=== PATIENT | female | born 1995 | race Caucasian/White ===

== ENCOUNTER 2019-10-11 10:56 | Emergency (ER) | payer BC ==
[~2019-10-11] VITALS: Ht 177.8 cm; Wt 66.4 kg
--- NOTE | 2019-10-11 11:25 | PHYS DOC ---
Past History Past Medical History: Depression Additional Smoking Information: Vape Alcohol Use: Occasionally Adult General Chief Complaint Chief Complaint: NAUSEA/VOMITING/DIARRHEA HPI HPI 24-year-old female presents with nausea and vomiting. Patient started to have vomiting and diarrhea around 3:00 this morning. It came on suddenly. She was feeling okay yesterday except for some depression. She has felt a little more depressed the last few days. Otherwise she has felt okay medically. She denies fever chills. She has no other complaints at this time. Review of Systems Review of Systems Constitutional: Denies fever or chills [] Eyes: Denies change in visual acuity, redness, or eye pain [] HENT: Denies nasal congestion or sore throat [] Respiratory: Denies cough or shortness of breath [] Cardiovascular: No additional information not addressed in HPI [] GI: Denies abdominal pain, nausea, vomiting, bloody stools or diarrhea [] : Denies dysuria or hematuria [] Musculoskeletal: Denies back pain or joint pain [] Integument: Denies rash or skin lesions [] Neurologic: Denies headache, focal weakness or sensory changes [] Endocrine: Denies polyuria or polydipsia [] All other systems were reviewed and found to be within normal limits, except as documented in this note. Current Medications Current Medications Current Medications Medications (Trade) Dose Ordered Sig/Adi Start Time Stop Time Status Last Admin Dose Admin Ondansetron HCl (Zofran) 4 mg 1X ONCE 10/11/19 11:30 10/11/19 11:31 Sodium Chloride 1,000 ml @ 1,000 mls/hr 1X ONCE 10/11/19 11:30 10/11/19 12:29 Allergies Allergies Allergies Coded Allergies Type Severity Reaction Last Updated Verified amoxicillin Allergy Unknown 10/11/19 Yes Uncoded Allergies Type Severity Reaction Last Updated Verified ERYTHROMYCIN Allergy Unknown 10/11/19 Physical Exam Physical Exam Constitutional: Well developed, well nourished, no acute distress, non-toxic appearance. [] HENT: Normocephalic, atraumatic, bilateral external ears normal, oropharynx moist, no oral exudates, nose normal. [] Eyes: PERRLA, EOMI, conjunctiva normal, no discharge. [] Neck: Normal range of motion, no tenderness, supple, no stridor. [] Cardiovascular:Heart rate regular rhythm, no murmur [] Lungs & Thorax: Bilateral breath sounds clear to auscultation [] Abdomen: Bowel sounds normal, soft, no tenderness, no masses, no pulsatile masses. [] Skin: Warm, dry, no erythema, no rash. [] Back: No tenderness, no CVA tenderness. [] Extremities: No tenderness, no cyanosis, no clubbing, ROM intact, no edema. [] Neurologic: Alert and oriented X 3, normal motor function, normal sensory function, no focal deficits noted. [] Psychologic: Affect normal, judgement normal, mood normal. [] Current Patient Data Vital Signs Vital Signs Date Time Temp Pulse Resp B/P (MAP) Pulse Ox O2 Delivery O2 Flow Rate FiO2 10/11/19 11:15 97.4 82 24 114/71 (85) 98 Room Air EKG EKG [] Radiology/Procedures Radiology/Procedures [] Course & Med Decision Making Course & Med Decision Making Pertinent Labs and Imaging studies reviewed. (See chart for details) The patient's labs are unremarkable. She was given 4 mg of Zofran IV and a liter of normal saline. She has had no further vomiting. I will discharge her with a prescription for Zofran. She is stable for discharge at this time. [] Dragon Disclaimer Dragon Disclaimer This electronic medical record was generated, in whole or in part, using a voice recognition dictation system. Departure Departure: Impression: Primary Impression: Nausea & vomiting Additional Impression: Diarrhea Disposition: HOME, SELF-CARE Condition: IMPROVED Referrals: PCP,NO (PCP) Patient Instructions: Viral Gastroenteritis, Tyqd-[id number] Scripts Ondansetron (ONDANSETRON ODT) 4 Mg Tab.rapdis 1 TAB PO PRN Q6-8HRS PRN for VOMITING, #16 TAB Prov: TAWANDA LOWE DO 10/11/19 Problem Qualifiers Primary Impression: Nausea & vomiting Vomiting type: unspecified Vomiting Intractability: non-intractable Qualified Codes: R11.2 - Nausea with vomiting, unspecified Additional Impression: Diarrhea Diarrhea type: unspecified type Qualified Codes: R19.7 - Diarrhea, unspecified TAWANDA LOWE DO Oct 11, 2019 11:25
[2019-10-11] MEDS ORDERED: IV NORMAL SALINE 1,000ML 1,000 ML IV ONE (11:30)
[2019-10-11] MEDS ORDERED: ONDANSETRON PF 4 MG/2 ML VIAL. IVP ONE (11:30)
[2019-10-11 11:55] LABS: BASO % 0 % (0-3); EOS % 0 % (0-3); HEMATOCRIT 44.7 % (36.0-47.0); HEMOGLOBIN 15.7 g/dL (12.0-15.5); LYMPH # 0.7 x10^3/uL (1.0-4.8); LYMPH % 6 % (24-48); MEAN CORPUSCULAR HEMOGLOBIN 30 pg (25-35); MEAN CORPUSCULAR HGB CONC 35 g/dL (31-37); MEAN CORPUSCULAR VOLUME 86 fL (79-100); MONO # 0.2 x10^3/uL (0.0-1.1); MONO % 2 % (0-9); NEUT # 9.9 x10^3uL (1.8-7.7); NEUT % 92 % (31-73); PLATELET COUNT 226 x10^3/uL (140-400); RED BLOOD COUNT 5.19 x10^6/uL (3.50-5.40); RED CELL DISTRIBUTION WIDTH 11.9 % (11.5-14.5); WHITE BLOOD COUNT 10.8 x10^3/uL (4.0-11.0)
[2019-10-11 11:59] LABS: CALCIUM 9.1 mg/dL (8.5-10.1); POTASSIUM 3.7 mmol/L (3.5-5.1)
[2019-10-11 12:06] LABS: ALBUMIN 4.1 g/dL (3.4-5.0); ALBUMIN/GLOBULIN RATIO 1.2 (1.0-1.7); TOTAL BILIRUBIN 1.1 mg/dL (0.2-1.0); TOTAL PROTEIN 7.4 g/dL (6.4-8.2)
[2019-10-11] MEDS ORDERED: ONDA4TAB12 PO (13:01)
[2019-10-11 13:02] VITALS: BP 129/71
== END 2019-10-11 13:10 | disposition home or self-care (01) ==
LOC: ER 10:56
DX: R11.2 Nausea with vomiting, unspecified (principal); R19.7 Diarrhea, unspecified; Z88.1 Allergy status to other antibiotic agents
CPT/HCPCS: 36415; 80053; 85025; 96361; 96374; 99285; J2405; J7030

== ENCOUNTER 2019-10-12 18:22 | Emergency (ER) | payer BC ==
[~2019-10-12] VITALS: Ht 177.8 cm; Wt 68.0 kg
[2019-10-12 18:22] VITALS: BP 140/114
[~2019-10-12 18:22] MED LIST: ONDA4TAB12 PO
[2019-10-12] MEDS ORDERED: ONDANSETRON ODT 4 MG TAB.RAPDIS ONE (18:32)
[2019-10-12] MEDS: ONDANSETRON ODT 4 MG TAB.RAPDIS PO ONE (18:35)
[2019-10-12] MEDS: FAMOTIDINE 20 MG/2 ML VIAL IVP ONE (18:45)
[2019-10-12] MEDS: IV NORMAL SALINE 1,000ML 1,000 ML IV ONE ×2 (18:50→20:30)
[2019-10-12 19:01] LABS: BASO % 0 % (0-3); EOS % 0 % (0-3); HEMATOCRIT 43.9 % (36.0-47.0); HEMOGLOBIN 15.4 g/dL (12.0-15.5); LYMPH # 1.1 x10^3/uL (1.0-4.8); LYMPH % 9 % (24-48); MEAN CORPUSCULAR HEMOGLOBIN 30 pg (25-35); MEAN CORPUSCULAR HGB CONC 35 g/dL (31-37); MEAN CORPUSCULAR VOLUME 86 fL (79-100); MONO # 0.6 x10^3/uL (0.0-1.1); MONO % 5 % (0-9); NEUT # 10.4 x10^3uL (1.8-7.7); NEUT % 86 % (31-73); PLATELET COUNT 251 x10^3/uL (140-400); RED BLOOD COUNT 5.09 x10^6/uL (3.50-5.40); RED CELL DISTRIBUTION WIDTH 12.3 % (11.5-14.5); WHITE BLOOD COUNT 12.2 x10^3/uL (4.0-11.0)
[2019-10-12 19:13] LABS: CALCIUM 9.2 mg/dL (8.5-10.1); CREATININE 1.1 mg/dL (0.6-1.0); POTASSIUM 3.2 mmol/L (3.5-5.1)
[2019-10-12 19:19] LABS: ALBUMIN 4.2 g/dL (3.4-5.0); ALBUMIN/GLOBULIN RATIO 1.2 (1.0-1.7); TOTAL BILIRUBIN 1.3 mg/dL (0.2-1.0); TOTAL PROTEIN 7.7 g/dL (6.4-8.2)
[2019-10-12] MEDS: IOHEXOL 300 MG/ML 75 ML VIAL. IV ONE ×2 (19:35→20:42)
[2019-10-12 19:50] LABS: PREG TEST PT QUAL NEGATIVE (NEG)
[2019-10-12 19:56] LABS: CLARITY,URINE CLOUDY; COLOR,URINE AMBER
--- NOTE | 2019-10-12 19:56 | RAD ---
CT abdomen pelvis with contrast dated 10/12/2019. No comparison available. Clinical data indication: Abdominal pain and intractable nausea and vomiting. TECHNIQUE: Contiguous axial imaging the abdomen and pelvis performed after the administration of 75 cc Omnipaque 300. One or more of the following individualized dose reduction techniques were utilized for this examination: 1. Automated exposure control 2. Adjustment of the mA and/or kV according to patient size 3. Use of iterative reconstruction technique. FINDINGS: Limited images of lung bases are clear. There is a small amount of pneumomediastinum anterior to the heart and around the distal thoracic esophagus. No pleural or pericardial effusion. Liver is homogeneous in attenuation. There is mild periportal edema. There is some low density near the falciform ligament likely represents focal fat. The gallbladder is surgically absent. Spleen is mildly enlarged. Pancreas, adrenal glands and kidneys are unremarkable. No hydronephrosis. Unopacified GI tract normal in caliber and contour. No focal bowel wall thickening. No inflammatory stranding in the mesentery. Appendix normal in caliber. No ascites or lymphadenopathy. Abdominal aorta normal in caliber. Images of pelvis show nondistended urinary bladder. Uterus unremarkable. There is a 2.4 cm left ovarian cyst. No free fluid or pelvic lymphadenopathy. Bone windows show no acute findings. IMPRESSION: 1. There is a small amount of pneumomediastinum anterior to the heart and around the distal thoracic esophagus which is of uncertain etiology. Correlation with clinical history and imaging of the chest to better evaluate. 2. Mild periportal edema, nonspecific. 3. Otherwise no acute abnormality. Normal appendix. 4. Status post cholecystectomy. Electronically signed by: Deniz Torres MD (10/12/2019 7:53 PM) [id number]
[2019-10-12 19:57] LABS: BACTERIA,URINE MOD /HPF (0-FEW); BILIRUBIN,URINE NEG (NEG); GLUCOSE,URINE NEG (NEG); NITRITE,URINE NEG (NEG); SQUAMOUS EPITHELIAL CELL,UR FEW /LPF
[2019-10-12] MEDS: METOCLOPRAMIDE HCL 10 MG/2 ML VIAL. IVP ONE (19:58)
[2019-10-12] MEDS: diphenhydrAMINE 50 MG/ML VIAL IVP ONE (19:58)
[2019-10-12] MEDS: KETOROLAC 15 MG/ML VIAL. IVP ONE (19:59)
[2019-10-12 20:13] LABS: BARBITURATES NEG (NEG); BENZODIAZEPINES NEG (NEG); CANNABINOIDS NEG (NEG); COCAINE NEG (NEG); METHADONE NEG (NEG); OPIATES NEG (NEG); PHENCYCLIDINE NEG (NEG)
[2019-10-12 20:16] LABS: AMPHETAMINE/METHAMPHETAMINE NEG (NEG)
[2019-10-12] MEDS ORDERED: CONTRAST GIVEN MC PRN (20:30)
--- NOTE | 2019-10-12 20:56 | PHYS DOC ---
Past History Past Medical History: Asthma, Depression Past Surgical History: Cholecystectomy Smoking: Cigarettes Alcohol Use: Occasionally Drug Use: None Adult General Chief Complaint Chief Complaint: NAUSEA/VOMITING/DIARRHEA HPI HPI 24-year-old female presents with report of intractable nausea and vomiting that has been ongoing for the past 2 days. Patient does report some abdominal discomfort. Patient was seen yesterday for same with blood work done per [facility] review. Patient was discharged home with nausea medication. Patient denies known trauma. Denies . Denies known sick contacts. Denies travel. Review of Systems Review of Systems Constitutional: Denies fever or chills; reports generalized malaise Eyes: Denies redness or eye pain HENT: Denies nasal congestion or sore throat Respiratory: Denies cough or shortness of breath Cardiovascular: Denies chest pain or palpitations GI: Reports upper abdominal pain, nausea, and vomiting; denies diarrhea or constipation : Denies dysuria; reports decreased urinary frequency Musculoskeletal: Denies back pain or joint pain Integument: Denies rash or skin lesions Neurologic: Denies headache, focal weakness or sensory changes Complete systems were reviewed and found to be within normal limits, except as documented in this note. Current Medications Current Medications Current Medications Medications (Trade) Dose Ordered Sig/Adi Start Time Stop Time Status Last Admin Dose Admin Ceftriaxone Sodium 1 gm/ Sodium Chloride 50 ml @ 100 mls/hr 1X ONCE 10/12/19 20:45 10/12/19 21:14 Diphenhydramine HCl (Benadryl) 50 mg 1X ONCE 10/12/19 19:30 10/12/19 19:31 DC 10/12/19 19:58 50 MG Famotidine (Pepcid Vial) 20 mg 1X ONCE 10/12/19 18:45 10/12/19 18:58 DC 10/12/19 18:45 20 MG Info (Do NOT chart on this entry -- for MONITORING) 1 each PRN DAILY PRN 10/12/19 20:30 10/14/19 20:29 Iohexol (Omnipaque 300 Mg/ml) 60 ml 1X ONCE 10/12/19 20:15 10/12/19 20:20 DC Ketorolac Tromethamine (Toradol 15mg Vial) 15 mg 1X ONCE 10/12/19 18:45 10/12/19 19:01 DC 3/31/20 19:59 15 MG Metoclopramide HCl (Reglan Vial) 10 mg 1X ONCE 10/12/19 19:30 10/12/19 19:31 DC 10/12/19 19:58 10 MG Ondansetron HCl (Zofran Odt) 4 mg 1X ONCE 10/12/19 19:00 10/12/19 19:01 DC 10/12/19 18:35 4 MG Sodium Chloride 1,000 ml @ 1,000 mls/hr 1X ONCE 10/12/19 20:30 10/12/19 21:29 10/12/19 20:30 1,000 MLS/HR Allergies Allergies Allergies Coded Allergies Type Severity Reaction Last Updated Verified amoxicillin Allergy Unknown 10/11/19 Yes Uncoded Allergies Type Severity Reaction Last Updated Verified ERYTHROMYCIN Allergy Unknown 10/11/19 Physical Exam Physical Exam Constitutional: Well developed, well nourished, uncomfortable, non-toxic appearance HENT: Normocephalic, atraumatic, oropharynx dry Eyes: Conjunctiva normal, no discharge Neck: Normal range of motion, no tenderness, supple Cardiovascular: Heart rate normal, regular rhythm Lungs & Thorax: Bilateral breath sounds clear to auscultation, no wheezing Abdomen: Soft, upper tenderness Skin: Warm, dry, no erythema, no rash Back: No tenderness, no CVA tenderness Extremities: No tenderness, ROM intact, no edema Neurologic: Alert and oriented X 3, no focal deficits noted Psychologic: Affect flat, judgment normal Current Patient Data Vital Signs Vital Signs Date Time Temp Pulse Resp B/P (MAP) Pulse Ox O2 Delivery O2 Flow Rate FiO2 10/12/19 18:22 98.3 65 22 140/114 (123) 97 Room Air Lab Results Laboratory Tests Test 10/12/19 18:47 10/12/19 18:52 10/12/19 19:02 10/12/19 19:22 White Blood Count 12.2 x10^3/uL (4.0-11.0) H Red Blood Count 5.09 x10^6/uL (3.50-5.40) Hemoglobin 15.4 g/dL (12.0-15.5) Hematocrit 43.9 % (36.0-47.0) Mean Corpuscular Volume 86 fL (79-100) Mean Corpuscular Hemoglobin 30 pg (25-35) Mean Corpuscular Hemoglobin Concent 35 g/dL (31-37) Red Cell Distribution Width 12.3 % (11.5-14.5) Platelet Count 251 x10^3/uL (140-400) Neutrophils (%) (Auto) 86 % (31-73) H Lymphocytes (%) (Auto) 9 % (24-48) L Monocytes (%) (Auto) 5 % (0-9) Eosinophils (%) (Auto) 0 % (0-3) Basophils (%) (Auto) 0 % (0-3) Neutrophils # (Auto) 10.4 x10^3uL (1.8-7.7) H Lymphocytes # (Auto) 1.1 x10^3/uL (1.0-4.8) Monocytes # (Auto) 0.6 x10^3/uL (0.0-1.1) Eosinophils # (Auto) 0.0 x10^3/uL (0.0-0.7) Basophils # (Auto) 0.0 x10^3/uL (0.0-0.2) Sodium Level 141 mmol/L (136-145) Potassium Level 3.2 mmol/L (3.5-5.1) L Chloride Level 101 mmol/L (98-107) Carbon Dioxide Level 26 mmol/L (21-32) Anion Gap 14 (6-14) Blood Urea Nitrogen 16 mg/dL (7-20) Creatinine 1.1 mg/dL (0.6-1.0) H Estimated GFR (Cockcroft-Gault) 60.0 BUN/Creatinine Ratio 15 (6-20) Glucose Level 93 mg/dL (70-99) Calcium Level 9.2 mg/dL (8.5-10.1) Total Bilirubin 1.3 mg/dL (0.2-1.0) H Aspartate Amino Transferase (AST) 27 U/L (15-37) Alanine Aminotransferase (ALT) 43 U/L (14-59) Alkaline Phosphatase 65 U/L (46-116) Total Protein 7.7 g/dL (6.4-8.2) Albumin 4.2 g/dL (3.4-5.0) Albumin/Globulin Ratio 1.2 (1.0-1.7) Lipase 88 U/L (73-393) Serum Test, Qualitative Negative (NEG) Urine Collection Type Unknown Urine Color Cha Urine Clarity Cloudy Urine pH 6.0 Urine Specific [place] >=1.030 Urine Protein 30 mg/dl (NEG-TRACE) Urine Glucose (UA) Neg mg/dL (NEG) Urine Ketones (Stick) >=160 mg/dL (NEG) Urine Blood Trace (NEG) Urine Nitrite Neg (NEG) Urine Bilirubin Neg (NEG) Urine Urobilinogen Dipstick 1.0 mg/dL (0.2 mg/dL) Urine Leukocyte Esterase Trace (NEG) Urine RBC 1-2 /HPF (0-2) Urine WBC 5-10 /HPF (0-4) Urine Squamous Epithelial Cells Few /LPF Urine Bacteria Mod /HPF (0-FEW) Urine Mucus Mod /LPF POC Urine HCG, Qualitative hcg negative (Negative) Urine Opiates Screen Neg (NEG) Urine Methadone Screen Neg (NEG) Urine Barbiturates Neg (NEG) Urine Phencyclidine Screen Neg (NEG) Urine Amphetamine/Methamphetamine Neg (NEG) Urine Benzodiazepines Screen Neg (NEG) Urine Cocaine Screen Neg (NEG) Urine Cannabinoids Screen Neg (NEG) Urine Ethyl Alcohol Neg (NEG) EKG EKG [] Radiology/Procedures Radiology/Procedures PROCEDURE: CT ABD PELV W/ IV CONTRST ONLY CT abdomen pelvis with contrast dated 10/12/2019. No comparison available. Clinical data indication: Abdominal pain and intractable nausea and vomiting. TECHNIQUE: Contiguous axial imaging the abdomen and pelvis performed after the administration of 75 cc Omnipaque 300. One or more of the following individualized dose reduction techniques were utilized for this examination: 1. Automated exposure control 2. Adjustment of the mA and/or kV according to patient size 3. Use of iterative reconstruction technique. FINDINGS: Limited images of lung bases are clear. There is a small amount of pneumomediastinum anterior to the heart and around the distal thoracic esophagus. No pleural or pericardial effusion. Liver is homogeneous in attenuation. There is mild periportal edema. There is some low density near the falciform ligament likely represents focal fat. The gallbladder is surgically absent. Spleen is mildly enlarged. Pancreas, adrenal glands and kidneys are unremarkable. No hydronephrosis. Unopacified GI tract normal in caliber and contour. No focal bowel wall thickening. No inflammatory stranding in the mesentery. Appendix normal in caliber. No ascites or lymphadenopathy. Abdominal aorta normal in caliber. Images of pelvis show nondistended urinary bladder. Uterus unremarkable. There is a 2.4 cm left ovarian cyst. No free fluid or pelvic lymphadenopathy. Bone windows show no acute findings. IMPRESSION: 1. There is a small amount of pneumomediastinum anterior to the heart and around the distal thoracic esophagus which is of uncertain etiology. Correlation with clinical history and imaging of the chest to better evaluate. 2. Mild periportal edema, nonspecific. 3. Otherwise no acute abnormality. Normal appendix. 4. Status post cholecystectomy. Electronically signed by: Deniz Torres MD (10/12/2019 7:53 PM) [id number] Course & Med Decision Making Course & Med Decision Making Pertinent Labs and Imaging studies reviewed. (See chart for details) Patient presents with intractable nausea and vomiting. Patient seen at [place] yesterday for same. Labs were reviewed. Patient was sent home with nausea medication which is not helping. Patient noted to have some upper abdominal discomfort. New set of labs obtained and posted to chart. UA with significant ketones consistent for dehydration and possible infection. Empiric antibiotics initiated. IV fluid hydration given. Symptomatic treatment also provided. CT abdomen/pelvis with concern for possible pneumo-mediastinum. CT chest therefore obtained with confirmation of pneumomediastinum. Patient requiring transfer for admission to facility with cardiothoracic capability for further evaluation and treatment. Utilized [facility] transfer line. Discussed with Dr. Naa Aguilar (hospitalist at [facility]) who is in agreement with transfer for admission at [facility]. Discussed findings and plan with patient, who acknowledges understanding and agreement. Dragon Disclaimer Dragon Disclaimer This electronic medical record was generated, in whole or in part, using a voice recognition dictation system. Departure Departure: Impression: Primary Impression: Pneumomediastinum Additional Impressions: Intractable nausea and vomiting Hypokalemia UTI (urinary tract infection) Disposition: 05 TRANSFER OTHER ([facility]- Dr. Seven Aguilar) Condition: GUARDED Referrals: PCP,NO (PCP) Critical Care Time Critical care time was 30 minutes which includes time at bedside, spent in discussion of patient's care with specialists and/or family members, with interpretation of laboratory and/or radiological studies and is exclusive of procedures. Problem Qualifiers Additional Impressions: UTI (urinary tract infection) Urinary tract infection type: acute cystitis Hematuria presence: without hematuria Qualified Codes: N30.00 - Acute cystitis without hematuria DENIZ GOVEA DO Oct 12, 2019 20:56
--- NOTE | 2019-10-12 21:19 | RAD ---
CT scan of the chest with contrast 10/12/2019 CLINICAL HISTORY: Nausea and vomiting and abdominal pain. Pneumomediastinum seen on CT scan of the abdomen from earlier today. TECHNIQUE: After the intravenous administration of 60 cc of Omnipaque 300, contiguous, 3 mm axial sections were obtained through the chest and upper abdomen. One or more of the following individualized dose reduction techniques were utilized for this study: 1. Automated exposure control. 2. Adjustment of the mA and/or kV according to patient size. 3. Use of iterative reconstruction technique. FINDINGS: Comparison is made to patient's CT scan of the abdomen and pelvis performed earlier today. Pneumomediastinum is seen throughout the chest. This extends to involve the soft tissues of the visualized neck and the right axilla. The etiology of the pneumomediastinum (tracheobronchial perforation, esophageal perforation, etc.) is not clear on this study. The heart and thoracic aorta are within normal limits. No pulmonary infiltrate is seen. No pleural effusion or pneumothorax is noted. Images through the upper abdomen are unchanged. IMPRESSION: Pneumomediastinum is seen throughout the chest. This extends to involve the visualized neck and right axilla. The etiology of the pneumomediastinum is not clear on this study. Clinical correlation is recommended. Electronically signed by: Moe Garzon MD (10/12/2019 9:16 PM) [id number]
[2019-10-12] MEDS ORDERED: IV NORMAL SALINE 50ML 50 ML ONE (21:52)
[2019-10-12] MEDS ORDERED: cefTRIAXone SODIUM 1 GM VIAL ONE (21:52)
[2019-10-12] MEDS ORDERED: ONDANSETRON PF 4 MG/2 ML VIAL. ONE (23:54)
[2019-10-13] MEDS ORDERED: ONDANSETRON PF 4 MG/2 ML VIAL. IVP ONE (00:15)
== END 2019-10-12 23:59 | disposition short-term general hospital (02) ==
LOC: ER 18:22
DX: J98.2 Interstitial emphysema (principal); R11.2 Nausea with vomiting, unspecified; N30.00 Acute cystitis without hematuria; E87.6 Hypokalemia; J45.909 Unspecified asthma, uncomplicated; F17.210 Nicotine dependence, cigarettes, uncomplicated; Z90.49 Acquired absence of other specified parts of digestive tract; Z88.1 Allergy status to other antibiotic agents
CPT/HCPCS: 36415; 71260; 74177; 80053; 80307; 81001; 81025; 83690; 84703; 85025; 87086; 96361; 96365; 96375; 99285; J0696; J1200; J1885; J2765; J3490; Q0162; Q9967; J7030